=== PATIENT | female | born 1985 | race Caucasian/White ===

== ENCOUNTER 2017-10-29 00:03 | Inpatient (IN) | payer OTHER ==
[~2017-10-29 00:03] MED LIST: Acetaminophen 325 MG Tab PO PRN; Carboprost Tromethamine 250 MCG/1 ML Amp IM PRN; Lactated Ringers 500 ML IV ONE; Lidocaine 1% 30 ML SDV INJECT PRN; Methylergonovine 0.2 MG/1 ML Amp IM PRN; Misoprostol 400 MCG (4 X 100 MCG TAB) RECTAL PRN; Ondansetron 4 MG/2 ML SDV IV PRN; Penicillin G Potassium 5 MILLUNITS in Sodium Chloride 0.9% 100 ML IV ONE; Sodium Chloride 0.9% 10 ML Syringe FLUSH PRN; Tranexamic Acid 1,000 MG in Sodium Chloride 0.9% 100 ML IV PRN
[2017-10-29] MEDS: Misoprostol 25 MCG (1/4 of 100 MCG) Tab VAG PRN ×2 (00:53→05:10)
[2017-10-29] MEDS: Lactated Ringers 1,000 ML IV SCH ×2 (01:13→14:50)
[2017-10-29] MEDS ORDERED: Penicillin G Potassium 3 MILLUNITS in Sodium Chloride 0.9% 100 ML IV SCH ×2 (04:00→13:00)
--- NOTE | 2017-10-29 08:49 | OBOUT ---
DATE: 10/29/2017 DATE AND TIME OF NST: Date: 10/29/2017. Time: 0014 hours to 0034 hours. REASON FOR NST: 1. Intrauterine at 39+ weeks. 2. Gestational diabetes mellitus, diet controlled with history of questionable control. 3. Group B streptococcus positive. 4. History of gestational thrombocytopenia in this . CBC pending. 5. G4, P3-0-0-3. NST INTERPRETATION: During this time period, heart tone baseline is approximately 135 to 140, and there are at least two 15 x 15 beat per minute accelerations, making this strip reactive. It is also noted to be reassuring. Tocometer reveals possibility of 1 to 2 contractions, some minimally felt by patient. ASSESSMENT: 1. Nonstress test, reactive and reassuring. 2. Tocometer with contractions. PLAN: Blood pressure 124/71, heart rate 102, temperature 98. Please see H and P done through Epic. Records were called for reviewed and supplemented by patient history in regard to this. We will proceed with Cytotec 25 mcg, which will be placed shortly after this NST, vaginally. Cervical exam revealing her to be 1.5 cm, 50% effaced, -2 station, vertex suspected. Blood sugar will also be drawn to further evaluate with her history of her gestational diabetes mellitus as well. [facility] /[id number]
[2017-10-29] MEDS ORDERED: Penicillin G Potassium 5 MILLUNITS in Sodium Chloride 0.9% 100 ML IV ONE (09:00)
[2017-10-29] MEDS ORDERED: Misoprostol 50 MCG (1/2 of 100 MCG) Tab VAG PRN (09:10)
--- NOTE | 2017-10-29 13:55 | PN ---
DATE: 10/29/2017 SUBJECTIVE: The patient's contractions have becoming more often, more painful, is now status post Cytotec x3. OBJECTIVE: Tocometer reveals contractions every 1.5 to 2 minutes. heart tones in the 150s range, felt to be reassuring. Vaginal exam reveals be 3 cm, 60-70% effaced -1 station, vertex suspected. Artificial rupture of membranes done after discussion with the patient yielding copious amounts of clear fluid. ASSESSMENT AND PLAN: 1. Intrauterine at 39 weeks, complicated by gestational diabetes mellitus, diet controlled, group B Streptococcus positive with antibiotics started with gestational thrombocytopenia with platelets of 122,000 upon admit. 2. 4, para 3-0-0-3, now status post Cytotec x3, artificial rupture membranes as above. We will continue to follow clinically and closely. [facility] /[id number]
[2017-10-29] MEDS ORDERED: Bupivacaine 0.75%/D5W 2 ML Amp ONE (14:56)
[2017-10-29] MEDS ORDERED: EPINEPHrine 1 MG/ML SDV ONE (14:56)
[2017-10-29] MEDS ORDERED: fentaNYL 100 MCG/2 ML SDV IVPUSH ONE (14:58)
[2017-10-29] MEDS ORDERED: Oxytocin/Normal Saline 30 UNIT/500 ML BAG IV SCH (15:12)
[2017-10-29] MEDS ORDERED: Benzocaine/Menthol 20%-0.5% Spray 56 GM Canister TOP PRN (15:42)
[2017-10-29] MEDS ORDERED: Zolpidem 5 MG Tab PO PRN (15:42)
[2017-10-29] MEDS ORDERED: Oxytocin 10 Units/1 ML SDV IM PRN (15:42)
[2017-10-29] MEDS: Ibuprofen 800 MG Tab PO PRN (16:14)
[2017-10-30] MEDS: Ibuprofen 800 MG Tab PO PRN ×3 (01:25→17:11)
[2017-10-30] MEDS: Docusate Sodium 100 MG Cap PO PRN ×2 (09:35→17:11)
[2017-10-30] MEDS: Prenatal Multivitamin with Calcium/Folic Acid/Iron Tab PO SCH (09:35)
--- NOTE | 2017-10-30 14:02 | PN ---
DATE: 10/30/2017 SUBJECTIVE: The patient is day #1 from a vaginal delivery. The patient's was complicated by A1 gestational diabetes and gestational thrombocytopenia. This morning her and baby are both doing well. Lochia is normal. OBJECTIVE: Vital Signs: The patient is afebrile. Heart rate 72 to 101. Blood pressure 102 to 129 over 58 to 74, respiratory rate 20, O2 saturation 97%. The patient is O positive. Rubella immune. Vital signs this morning, temperature 98.2, heart rate 72, respiratory rate 18, O2 saturation 98%. Her blood pressure 102/55. The patient's fundus is firm, below the umbilicus. There is no edema in the extremities. The patient did have a CBC prior to delivery, hemoglobin was 10.9, this morning hemoglobin is 11.0, and platelets are stable, predelivery were 122, and this morning are 118, the patient has no white count. ASSESSMENT AND PLAN: day #1, status post vaginal delivery with stable gestational thrombocytopenia and a complicated by diet- controlled gestational diabetes. Her and baby are both doing well so will continue with routine care and likely discharge tomorrow. [facility] /[id number] HERMILO
[2017-10-30] MEDS: Simethicone 80 MG Tab.Chew PO PRN (20:15)
[2017-10-31] MEDS: Ibuprofen 800 MG Tab PO PRN ×2 (00:12→08:16)
[2017-10-31] MEDS: Simethicone 80 MG Tab.Chew PO PRN (00:12)
[2017-10-31] MEDS: Prenatal Multivitamin with Calcium/Folic Acid/Iron Tab PO SCH (08:17)
[2017-10-31] MEDS: Docusate Sodium 100 MG Cap PO PRN (08:17)
--- NOTE | 2017-10-31 10:58 | DISCH ---
DATE: 10/31/2017 The patient is day #2 from a vaginal delivery. She has stable gestational thrombocytopenia and did have diet-controlled gestational diabetes. Her and baby are both doing well. Lochia is minimal. PHYSICAL EXAMINATION: Vital Signs: The patient is afebrile. Heart rate 68-70, blood pressure 91 to 93 over 52 to 58, respiratory rate 16 to 18, O2 saturations 98-99%. Abdomen: Fundus is firm below the umbilicus. Extremities: Have no tenderness, no edema. Blood type is O positive. She is rubella immune. ASSESSMENT AND PLAN: day #2, status post vaginal delivery. Mom and baby are both doing well. Her gestational thrombocytopenia is stable, and she will stop monitoring glucoses, though we will likely screen for type 2 diabetes at her 6-week visit, and she will follow up with her provider for her 6-week visit. [facility] /[id number]
--- NOTE | 2017-11-01 08:56 | PN ---
DATE: 10/29/2017 SUBJECTIVE: The patient is breathing through contractions, requesting something for pain. She has been in the tub and then subsequently on the ball. OBJECTIVE: heart tones in the 150s. One variable deceleration seen. Accelerations are noted. Tocometer reveals contractions every 1.5 to 2 minutes apart. Vaginal exam reveals to be 5 to 6 cm, 95% effaced, 0 to -1 station, vertex suspected. ASSESSMENT AND PLAN: 1. Intrauterine at 39 weeks with gestational diabetes mellitus, diet controlled. 2. Group B streptococcus positive (antibiotics given). 3. Gestational thrombocytopenia with platelets of 122,000 in a female who is G4, P3-0-0-3, now requesting something for pain, status post Cytotec x3 and artificial rupture of membranes. We will get her intrathecal as soon as possible and follow clinically and closely thereafter. The patient understands and agrees with the above treatment and plan. [facility] /[id number]
--- NOTE | 2017-11-01 08:59 | DEL ---
DATE: 10/29/2017 PREOPERATIVE DIAGNOSES: 1. Intrauterine at 39 weeks confirmed with 11-3/7 weeks' ultrasound. 2. Gestational diabetes mellitus, diet controlled. 3. Group B Streptococcus positive (antibiotics given, at least 2 doses of penicillin). 4. Gestational thrombocytopenia with platelets of 122,000 upon admit. 5. 4, para 3-0-0-3. POSTOPERATIVE DIAGNOSES: 1. Intrauterine at 39 weeks confirmed with 11-3/7 weeks' ultrasound, delivered. 2. Gestational diabetes mellitus, diet controlled. 3. Group B Streptococcus positive (antibiotics given, at least 2 doses of penicillin). 4. Gestational thrombocytopenia with platelets of 122,000 upon admit. 5. 4, para 3-0-0-3. 6. Left occiput anterior presentation. 7. Nuchal cord x1, reduced bluntly with delivery. PROCEDURE PERFORMED: Cytotec x3, preceded by NST, followed by artificial rupture of membranes with spontaneous vaginal delivery on 10/29/2017. ANESTHESIA/ANALGESIA: The patient did receive some fentanyl 50 mcg prior to delivery in the first stage of labor. ESTIMATED BLOOD LOSS: 200 mL. FINDINGS: Female with scores 7 and 8, weight pending. SUMMARY OF EVENTS: The patient is a 32-year-old G4, P3-0-0-3, intrauterine at 39 weeks confirmed with 11-3/7 weeks' ultrasound, admitted with gestational diabetes mellitus, diet controlled and GBS positive status, underwent the above procedures including NST followed by Cytotec x3 and then subsequent artificial rupture of membranes. She progressed rapidly after 6 to 7 cm in the first and into the second stage of labor, requesting something for pain. Fentanyl was given 50 mcg IV. Subsequently, the patient had the urge to push. She was found to be in the second stage of labor. I was called to the room, donned with sterile gown and gloves. The patient started pushing with contractions. vertex was delivered in a MAXINE presentation with nuchal cord x1 reduced bluntly with delivery followed by anterior and posterior shoulders as well as rest of the infant without difficulty. Mouth and nares were suctioned. Cord was doubly clamped and cut. The was resuscitated on mother's abdomen. Then, approximately 10 mL of cord blood was obtained for labs. Placenta was then delivered with gentle cord traction and fundal massage within 5 minutes. Perineum, vagina, and perirectal areas were then examined without any tears or lacerations. Mother and infant are currently stable at the time of dictation. [facility] /[id number]
== END 2017-10-31 11:05 | disposition home or self-care (01) | DRG 775 ==
LOC: DL.OB 00:03 → UNDOADMOB 00:03 → DL.OB 15:12 → OBSVTOIN 15:12 → EDSTATUS 23:58
PROVIDERS: ADMIT Family Medicine; ATTEND Family Medicine
PROC: 10E0XZZ Delivery of Products of Conception, External Approach (ICD-10-PCS; principal; 2017-10-29)
PROC: 3E0P7VZ Introduction of Hormone into Female Reproductive, Via Natural or Artificial Opening (ICD-10-PCS; 2017-10-29)
PROC: 10907ZC Drainage of Amniotic Fluid, Therapeutic from Products of Conception, Via Natural or Artificial Opening (ICD-10-PCS; 2017-10-29)
PROC: 6A550ZT Pheresis of Cord Blood Stem Cells, Single (ICD-10-PCS; 2017-10-29)
DX: O99.12 Other diseases of the blood and blood-forming organs and certain disorders involving the immune mechanism complicating childbirth (principal); Z37.0 Single live birth; O24.420 Gestational diabetes mellitus in childbirth, diet controlled; D69.59 Other secondary thrombocytopenia; O99.824 Streptococcus B carrier state complicating childbirth; Z3A.39 39 weeks gestation of pregnancy; O69.81X0 Labor and delivery complicated by cord around neck, without compression, not applicable or unspecified; Z28.21 Immunization not carried out because of patient refusal
CPT/HCPCS: 36415; 59409; 82947; 85027; A9270-GY; J2405; J2540; J2590; J3010; J7050; J7120